=== PATIENT | female | born 1975 | race Caucasian/White ===

== ENCOUNTER 2016-11-09 17:55 | Outpatient (CLI) | payer OTHER ==
[2016-11-26] MEDS ORDERED: PROBIOTI1 PO (10:58)
[2016-11-26] MEDS ORDERED: APPLE CIDER VINEGAR PO (11:00)
== END 2016-11-09 23:00 ==
LOC: LAB SRH 17:55
DX: N92.0 Excessive and frequent menstruation with regular cycle (principal); N83.202 Unspecified ovarian cyst, left side; D25.0 Submucous leiomyoma of uterus
CPT/HCPCS: 90001; 90004; 90047; 90074; 90155; 90364; 91004; 92863; 95059; 98428

== ENCOUNTER 2016-11-27 10:59 | Day surgery (SDC) | payer OTHER ==
--- NOTE | 2016-11-01 19:45 | HISTORY AND PHYSICAL ---
ADMITTED: 11/13/2016 CHIEF COMPLAINT: 1. Heavy periods 2. Fibroid uterus 3. Ovarian cyst HISTORY OF PRESENT ILLNESS: This patient reports that she has always had heavy periods, but that this has worsened. She currently bleeds every month for 6-8 days, very heavy for 3 to 4 of those days, during which time she uses a super plus tampon every half hour. Occasionally she will stop bleeding in the middle and then started bleeding again. She reports severe cramping, especially on the heavy days, rating it as a 10/10. She had an ultrasound done on 08/08/2016 that measured her uterus at 10.4 cm with 2 fibroids, a 1.7 cm right anterior and a 2 cm midline posterior, distorting the endometrium, which measured 14.3 mm. There was also a left proteinaceous hemorrhagic cyst on the left ovary. Repeat ultrasound was done 09/28/2016. The uterus measured 8.7 cm and was anteverted. There is a 2 cm right anterior subserosal fibroid and a 2 cm right posterior subserosal fibroid, as well as a 2.3 cm midline posterior submucosal fibroid. The endometrium measured 7.4 mm. The left ovary continues to have a 1.4 cm complex cyst. The right ovary was normal. The ultrasounds were discussed with her, focusing particularly on the submucosal fibroid as the potential cause for her heavy bleeding and cramping, as well as looking at the persistent complex left ovarian cyst. Options have been discussed with her, including risks and benefits, and she has chosen to schedule for a diagnostic laparoscopy, hysteroscopy, D&C and ablation, which is scheduled for 11/13/2016. Surgical risks have been reviewed with her, including infection, bleeding, damage to her structures, anesthesia, and the possibility of further surgery at the time or in the future. She also is aware that the ablation is not compatible with future childbearing, but is not considered adequate control. Informed consent has been signed. MEDICAL/SURGICAL HISTORY: Menstrual history includes menarche at age 12. LMP 11/2016. Obstetrical history includes a vaginal delivery in 1996. Two miscarriages in 1997 and a vaginal delivery in 1998. Past surgical history: Thyroid nodule in 1992, cholecystectomy in 1996. Past medical history: GERD and allergies. MEDICATIONS: 1. In the past she has used omeprazole 40 mg, but she has not needed this lately. ALLERGIES: 1. NO KNOWN DRUG ALLERGIES. SOCIAL HISTORY: She is , . Denies tobacco, alcohol and drug use. FAMILY HISTORY: Her mother is . Her father and siblings are alive and well, except that one sister has skin cancer. She denies any family history of hypertension, diabetes, heart disease, or stroke. REVIEW OF SYSTEMS: She denies headache, ear pain, throat pain, chest pain, shortness of breath, digestive disorders and joint and extremity problems. PHYSICAL EXAMINATION: VITAL SIGNS: She is 5 feet 7 inches, weighs 146. Blood pressure 124/80, pulse 86 , temperature 98.7. GENERAL: She is well developed, well nourished, alert, and oriented. HEENT: Within normal limits. HEART: Normal. LUNGS: Normal. ABDOMEN: Soft, nondistended. EXTREMITIES: No clubbing, cyanosis, or edema. IMPRESSION: 1. Menorrhagia with regular cycle 2. Dysmenorrhea 3. Submucosal fibroid 4. Left ovarian cyst PLAN: Diagnostic laparoscopy, hysteroscopy, D&C, ablation. Informed consent has been signed.
[~2016-11-27 10:59] MED LIST: APPLE CIDER VINEGAR PO; PROBIOTI1 PO
[2016-11-27] MEDS ORDERED: VICODIN EQUIVAL1 TAB PO (16:39)
--- NOTE | 2016-11-27 16:45 | Provider's Discharge Care Plan ---
Problem, Goal, Plan Problem List 1. Post-op pain Goals: Improve function Instructions: Follow up as directed
--- NOTE | 2016-11-27 16:45 | Provider's Discharge Care Plan ---
Problem, Goal, Plan Problem List 1. Post-op pain Goals: Improve function Instructions: Follow up as directed
[2016-11-27 17:20] VITALS: BP 112/77
[2016-11-27 17:39] VITALS: BP 118/83
[2016-11-27 17:54] VITALS: BP 124/81
--- NOTE | 2016-11-27 19:46 | OPERATIVE REPORT ---
DATE OF SURGERY: 11/27/2016 SURGEON: Jamila Schmidt DO PRODUCTION INTERN: None. PREOPERATIVE DIAGNOSES: 1. Menorrhagia with regular cycle 2. Dysmenorrhea 3. Submucosal fibroid 4. Left ovarian hemorrhagic cyst POSTOPERATIVE DIAGNOSES: 1. Menorrhagia with regular cycle 2. Dysmenorrhea 3. Submucosal fibroid 4. Left ovarian hemorrhagic cyst 5. Uterine polyps 6. Left ovarian endometrioma 7. Right ovarian simple cyst 8. Endometriosis 9. Adhesions PROCEDURES PERFORMED: 1. Diagnostic laparoscopy 2. Fulguration of endometrial implants 3. Left ovarian cystectomy (endometrioma) 4. Right ovarian cyst drainage 5. Hysteroscopy 6. Dilatation and curettage 7. MyoSure polypectomy and myomectomy 8. NovaSure endometrial ablation ANESTHESIA: GET. COMPLICATIONS: None. CONDITION: Stable. ESTIMATED BLOOD LOSS: Minimal. FLUIDS: 800 mL of LR. Blood administered: None. DRAINS: 0. URINE OUTPUT: 25 mL preoperatively. PATHOLOGY SPECIMEN: Left ovarian cyst contents, uterine polyps, endocervical curettings, endometrial curettings. IMPLANTS/GRAFTS: None. SURGICAL FINDINGS: Adhesions in both lower quadrants involving the colon and the pelvic sidewall, small area of endometriosis in the right ovarian fossa, bloody fluid in the pelvis, left ovarian endometrioma, right ovarian simple cyst. Uterus sounded to 10 cm, 3.5 of which were the cervix. Polyps and a posterior submucosal fibroid in the endometrial cavity, right. SURGICAL TECHNIQUE: The patient was taken to the operating room where her anesthesia was obtained. She was prepped and draped in the normal sterile fashion in the semi- lithotomy position. The infraumbilical area was infiltrated with 0.5% Marcaine with epinephrine and a small vertical skin incision was made with the scalpel. This was undermined with the hemostat and elevated with a towel clip for placement of the Veress needle, and position was verified by water passage. Pneumoperitoneum was obtained and the Veress needle was exchanged for the trocar and sleeve. Position was then verified laparoscopically. The upper abdomen was normal as viewed through the scope. The patient was placed in Trendelenburg and the pelvic structures were visualized. There were prominent fibroids visible at the fundus, one centrally and one towards the right. A suprapubic port was placed using a 5 mm trocar and placing it under direct laparoscopic visualization, and a similar port was placed in the left lower quadrant. This allowed further inspection of the pelvic organs. There appeared to be a posterior fibroid, as well, as the posterior aspect of the uterus was prominent and firm to instrument palpation. There also appeared to be an anterior fibroid lower in the uterus. Both of the lower quadrants had filmy adhesions between the bowel and the pelvic sidewalls. The right tube and ovary were normal in appearance except for a possible cyst that was on the ovary. In the right ovarian fossa, there was a small area that appeared to be consistent with endometriosis. The left tube was normal in appearance and the left ovary had what appeared to be, a hemorrhagic cyst on one end of it. The ovary was grasped with a nontraumatic grasper and the cyst area was opened using the Thunderbeat instrument. The contents of the cyst shelled out easily and appeared to be consistent with an endometrioma. The capsule was removed as well and cautery was done as needed to accomplish good hemostasis, although there was minimal bleeding from the site. On initial entry into the pelvis, she was noted to have bloody fluid in the pelvis. This was irrigated and suctioned. Again, there was good hemostasis from the left ovary. The right ovarian cyst was opened and drained and cautery was done to stop the small amount of bleeding from that ovarian site as well. The pelvis was then irrigated and suctioned. Good hemostasis was noted throughout the pelvis. The gas was then allowed to escape, and the ports were removed under direct laparoscopic visualization. The skin incisions were closed in a subcuticular fashion using 4-0 Polysorb. Steri-Strips and bandages were applied. Attention was then turned to the vaginal area where a sterile speculum was placed. The anterior cervical lip was grasped with a single-toothed tenaculum and the cervix was circumferentially injected with 0.5% Marcaine with epinephrine using approximately 10 mL. The uterus sounded to 10 cm, 3.5 of which were the cervix and the cervix was then serially dilated to #8-[place] dilator. The hysteroscope was advanced into the endocervical canal, which was clear. In the upper portion there were polypoid masses visible protruding from the uterine cavity. On entry into the uterine cavity, multiple polyps were noted, obscuring visualization of the endometrial cavity. The MyoSure morcellator was used to remove the polyps and both ostia were then seen. It also became clear that there was a posterior submucosal fibroid towards the left and this was shaved down using the MyoSure morcellator as well. The entire fibroid was not removed, but it was shaved flat with the endometrial cavity. The morcellator was removed, and endocervical currettings were obtained, followed by endometrial currettings. The endocervical tissue was fairly scant, but there was abundant endometrial tissue during the curettage portion. The NovaSure ablation wand was then positioned with a length of 6.5 cm and a measured width of 3.7 cm. The ablation was performed at a power of 132 lasting 1 minute 1 second. During the procedure, there was initially some red bloody fluid visible in the vacuum system and this slowed in volume and cleared in color during the procedure. On completion of the ablation, the wand was removed and necrotic tissue was visible on the mesh. There was no bleeding noted after the procedure. The tenaculum was removed and no bleeding was noted from the tenaculum site, either. All instruments were then removed from the patient. She was awakened from her anesthesia and taken to the recovery room in stable condition.
== END 2016-11-28 00:10 | disposition home or self-care (01) ==
LOC: OR SRH 10:59 → SCU SRH 11:03 → ACUTE2 SRH 17:23
PROVIDERS: Obstetrics & Gynecology
PROC: 0U5F4ZZ Destruction of Cul-de-sac, Percutaneous Endoscopic Approach (ICD-10-PCS; principal; 2016-11-27 13:00)
PROC: 0UB98ZX Excision of Uterus, Via Natural or Artificial Opening Endoscopic, Diagnostic (ICD-10-PCS; principal; 2016-11-27 13:00)
PROC: 0UB14ZZ Excision of Left Ovary, Percutaneous Endoscopic Approach (ICD-10-PCS; principal; 2016-11-27 13:00)
PROC: 0U5B8ZZ Destruction of Endometrium, Via Natural or Artificial Opening Endoscopic (ICD-10-PCS; principal; 2016-11-27 13:00)
PROC: 0UDB8ZX Extraction of Endometrium, Via Natural or Artificial Opening Endoscopic, Diagnostic (ICD-10-PCS; principal; 2016-11-27 13:00)
DX: N83.291 Other ovarian cyst, right side (principal); N83.202 Unspecified ovarian cyst, left side; N80.1 Endometriosis of ovary; N80.3 Endometriosis of pelvic peritoneum; D25.0 Submucous leiomyoma of uterus; N94.6 Dysmenorrhea, unspecified; N92.0 Excessive and frequent menstruation with regular cycle; N73.6 Female pelvic peritoneal adhesions (postinfective)